=== PATIENT | female | born 1985 | race Caucasian/White ===

== ENCOUNTER 2025-01-26 21:04 | Outpatient (CLI) | payer OTHER, MEDICAID, SELFPAY ==
[2025-01-26] VITALS (15 sets, daily range): BP systolic 118–133; BP diastolic 66–69; PULSE 27–99; O2SAT 79–100
--- NOTE | 2025-01-26 21:04 | PC.NURSE ---
Pt arrives to unit from home with blurred vision and a headache.
--- NOTE | 2025-01-26 21:40 | PC.NURSE ---
heart tones doppled with ultrasound monitor, 145 bpm.
[2025-01-26 21:57] LABS: Basophils Percent Auto 0.3 % (0.2-1.2); Eosinophils Absolute Auto 0.2 K/mm3 (0-0.3); Eosinophils Percent Auto 1.5 % (0-4.4); Hematocrit 35.2 % (37.0-47.0); Hemoglobin 11.6 g/dL (12.0-15.0); Immature Granulocyte Percent A 1.3 % (0-0.5); Lymphocytes Absolute Auto 2.62 K/mm3 (0.9-3.2); Lymphocytes Percent Auto 17.6 % (18.3-44.2); Mean Corpuscular Hemoglobin 29.7 pg (26-34); Mean Platelet Volume 9.5 fl (7.4-10.4); Monocytes Absolute Auto 0.7 K/mm3 (0.1-0.6); Monocytes Percent Auto 4.4 % (2.6-8.5); Neutrophils Absolute Auto 11.2 K/mm3 (1.3-6.7); Neutrophils Percent Auto 74.9 % (45.5-73.1); Platelet Count Result 253 k/mm3 (150-375); Red Blood Count 3.91 M/mm3 (4.2-5.4); Red Cell Distribution Width 14.1 % (11.5-14.5); White Blood Count 14.9 K/mm3 (4.5-10.0)
--- NOTE | 2025-01-26 22:03 | PC.NURSE ---
Addendum entered by Lynne Casas RN 01/27/25 01:27: Orders received for Tylenol 1000 mg for headache, reglan 25 mg and benadryl 10 mg if headache does not resolve with Tylenol. Original Note: Called Onofre Alba CNM, update on pt, blurred vision, headache, blood pressures, heart tones doppled, no uterine activity, and pending labs. Onofre Alba to review labs in the morning. Orders received to discharge pt with instructions to keep next scheduled appointment and when to return to the unit.
[2025-01-26 22:07] LABS: Alanine Aminotransferase 19 U/L (6-35); Albumin Level 3.3 g/dL (3.5-5.1); Alkaline Phosphatase 69 U/L (38-126); Anion Gap 10 mmol/L (4-12); Aspartate Amino Transferase 17 U/L (14-36); Bilirubin,Total 0.2 mg/dL (0.2-1.3); Blood Urea Nitrogen 8 mg/dL (7-17); Calcium 8.5 mg/dL (8.4-10.2); Carbon Dioxide 19 mmol/L (22-30); Chloride 106 mmol/L (98-107); Estimated Glomerular Filt Rate > 60; Glucose 145 mg/dL (65-110); Potassium 3.6 mmol/L (3.4-5.0); Sodium 135 mmol/L (137-145); Uric Acid 3.6 mg/dL (2.5-7.5)
[2025-01-26 22:08] LABS: Creatinine Urine 83.2 mg/dL
--- NOTE | 2025-01-26 22:20 | PC.NURSE ---
Pt refuses Tylenol at this time, wants to take Tylenol at home.
--- NOTE | 2025-01-26 22:48 | PC.NURSE ---
Pt discharged with instructions to take Tylenol 1000 mg as needed for headache, keep next scheduled appointment, and when to return to the unit, pt verbalizes understanding.
[2025-01-27 00:50] LABS: Total Protein Urine Random < 5 mg/dL; Ur Ttl Prot Creatinine Ratio < 0.06 mg/mg (0-0.20)
[2025-01-27 02:19] LABS: Add Urine Microscopic? NO; Appearance Urine Clear (Clear); Bilirubin Urine Negative (Negative); Blood Urine Negative (Negative); Color Urine Yellow (Yellow); Glucose Urine UA Negative (Negative); Ketones Urine Negative (Negative); Leukocyte Esterase Ur Negative LEU/UL (Negative); Nitrate Urine Negative (Negative); Protein Urine Negative (Negative); Specific Grav Ur 1.018 (1.001-1.035); Urobilinogen Urine 0.2 mg/dL (<2.0); pH Urine 6.5 (5.0-9.0)
== END 2025-01-26 22:48 | disposition home or self-care (01) ==
LOC: ANHOBOP 21:13 → ANHLDR 21:16
PROVIDERS: Advanced Practice Midwife; PCP Obstetrics & Gynecology; Visit Provider Obstetrics & Gynecology
DX: O26.899 Other specified pregnancy related conditions, unspecified trimester (principal); Z3A.00 Weeks of gestation of pregnancy not specified
CPT/HCPCS: 36415; 59025; 80053; 81003; 82570; 84156; 84550; 85025

== ENCOUNTER 2025-02-03 12:17 | Outpatient (CLI) | payer OTHER, MEDICAID, SELFPAY ==
[2025-02-03 12:58] VITALS: BP 130/84; PULSE 89
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
[2025-02-03 13:09] LABS: Basophils Absolute Auto 0.1 K/mm3 (0.0-0.1); Basophils Percent Auto 0.4 % (0.2-1.2); Eosinophils Absolute Auto 0.2 K/mm3 (0-0.3); Eosinophils Percent Auto 1.1 % (0-4.4); Hematocrit 36.2 % (37.0-47.0); Hemoglobin 11.9 g/dL (12.0-15.0); Immature Granulocyte Absolute 0.19 K/mm3 (0.00-0.031); Immature Granulocyte Percent A 1.4 % (0-0.5); Lymphocytes Absolute Auto 2.27 K/mm3 (0.9-3.2); Lymphocytes Percent Auto 16.1 % (18.3-44.2); Mean Corpuscular HGB Conc 32.9 g/dl (32-36); Mean Corpuscular Hemoglobin 29.7 pg (26-34); Mean Corpuscular Volume 90.3 fl (80-100); Mean Platelet Volume 9.7 fl (7.4-10.4); Monocytes Absolute Auto 0.7 K/mm3 (0.1-0.6); Monocytes Percent Auto 5.2 % (2.6-8.5); Neutrophils Absolute Auto 10.7 K/mm3 (1.3-6.7); Neutrophils Percent Auto 75.8 % (45.5-73.1); Platelet Count Result 233 k/mm3 (150-375); Red Blood Count 4.01 M/mm3 (4.2-5.4); White Blood Count 14.1 K/mm3 (4.5-10.0)
--- OUTSIDE RECORDS SUMMARY | 2025-02-03 13:21 | XMS_ITS | Encounter Summary ---
Author Organization [facility] Address [address] [place] [address] Phone Care Team Providers Care Refrigeration Service Technician Name Role Phone Damaso Bautista MD Unavailable [phone] Roc Mohamud MD Unavailable Rosalina Arcos Primary Care Provider + Miguel Wilkins MD Unavailable [phone] Deonte Mena MD Unavailable Mago Jackson DO Primary Care Provider [phone] Reason for Visit * Reason Comments Medication Refill Encounter Details Date Type Department Care Team (Late st Contact Info) Description 09/21/2020 Refill [facility] - [place] #1 [place] [address] Damaso Bautista MD [address]2 [place] [phone] Medication Refill Social History Tobacco Use Types Packs/Day Years Used Date Smoking Tobacco: Every Day Cigarettes 0.5 13 Smokeless Tobacco: Never Alcohol Use Standard Drinks/Week Comments No 0 (1 standard drink = 0.6 oz pur e alcohol) PHQ-2 Answer Date Recorded PHQ-2 Score 0 06/05/2019 Sexually Active Control Partners Comments Not Currently Comments No Sex and Gender Information Value Date Recorded Sex Assigned at Not on file Legal Sex Female 9:34 PM CDT Gender Identity Not on file Sexual Orientation Not on file documented as of this encounter Plan of Treatment Upcoming Encounters Date Type Department Care Team (Late st Contact Info) Description 03/03/2025 3:00 PM CDT Office Visit [facility] #2 [place] [address] Damaso Bautista MD [address]2 [place] [address] documented as of this encounter Visit Diagnoses Diagnosis Pituitary neoplasm Neoplasm of unspecified nature of endocrine glands and other parts of nervous system documented in this encounter Additional Health Concerns Assessment Noted Time PHQ-9 Depression Total Score: 0 10/27/19 1:00 PM COMPOUNDING TECHNICIAN documented as of this encounter Care Teams Refrigeration Service Technician Relationship Specialty Start Date End Date Rosalina Arcos PAC [address]2 [place] [address] PCP - General Physician Milieu Manager 10/10/18 10/15/24 Mago Jackson DO [address] [address] PCP - General Family Medicine 10/16/24 Damaso Bautista MD [address]2 [place] [address] Consulting Physician Neurology 08/24/15 Roc Mohamud MD #[address] [address] Consulting Physician Internal Medicine 06/22/16 Miguel Wilkins MD [address] [place] [address] Obstetrics & Gynecology 10/27/19 Deonte Mena MD #2 [facility] [place] [address] Consulting Physician Pulmonary Disease 02/13/23 documented as of this encounter
--- OUTSIDE RECORDS SUMMARY | 2025-02-03 13:22 | XMS_ITS | Clinical Summary ---
Author Organization [facility] Address [address] [facility] [place] [address] Phone Care Team Providers Care Maintenance Instructor Name Role Phone Damaso Bautista MD Unavailable [phone] Miguel Wilkins MD Unavailable Deonte Mena MD Unavailable Mago Jackson DO Primary Care Provider [phone] Allergies No known active allergies Medications bromocriptine (PARLODEL) 2.5 MG TabletIndication s:Pituitary neoplasm Take 1 Tablet by mouth 2 times daily. 60 Tablet 4 4 Active Additional Information Patient not taking.Reported on 10/16/2024 Phentermine HCl 37.5 MG Tablet 0 4 Active ketorolac (TORADOL) 10 MG Tablet Take 1 Tablet by mouth every 6 hours as needed for Moderate or more severe pain. 20 Tablet 4 Active Additional Information Patient not taking.Reported on 10/16/2024 methocarbamol (ROBAXIN) 750 MG TabletIndication s:Back pain, unspecified back location, unspecified back pain laterality, unspecified chronicity Take 1 Tablet by mouth 4 times daily as needed (muscle spasm/back pain). 30 Tablet 4 Active Additional Information Patient not taking.Reported on 10/16/2024 Vit-Fe Fumarate-FA ( VITAMIN PO) Take by mouth. Act amy ondansetron (ZOFRAN-ODT) 8 MG TABLET DISPERSIBLE Take 1 Tablet by mouth every 8 hours as needed for Nausea - 1st line. 30 Tablet Active Active Problems Problem Noted Date Diagnosed Date Ureterolithiasis 05/18/2019 Renal stone 05/16/2019 Obesity, morbid, BMI 40.0-49.9 01/28/2018 Numbness and tingling in right hand 06/13/2016 Benign paroxysmal positional vertigo Classic migraine with aura Nystagmus Pituitary neoplasm Prolactinoma macroadenoma Anxiety disorder due to general medical conditio n Depression Brain tumor PCOS (polycystic ovarian syndrome) Resolved Problems Problem Noted Date Diagnosed Date Resolved Date MARY (obstructive sleep apnea) 02/13/2023 11/29/2023 Obesity 02/13/2023 Family History Medical History Relation Name Comments No Known Problems Brother Rheumatoid Arthritis Father Reid Fay Heart Attack Maternal Grandmother Kerry Melo Congestive Heart Failure Mother Nancy Hoffman r Diabetes Mother Nancy Lee Heart Disease Mother Nancy Lee High Cholesterol Mother Nancy Lee Other-comment Mother Nancy Lee Rashes/Skin Problems Mother Nancy Lee Heart Disease Paternal Grandfather Breast Cancer Paternal Grandmother No Known Problems Sister Relation Name Status Comments Brother Alive Father Reid Fay Alive Maternal Grandfather Maternal Grandmother Kerry Melo Mother Nancy Lee Alive Paternal Grandfather Paternal Grandmother Sister Alive Social History Tobacco Use Types Packs/Day Years Used Date Smoking Tobacco: Former Cigarettes 0.5 13 0 10/18/2007 - 10/18/2020 Smokeless Tobacco: Never Tobacco Cessation:Counseling Given: Not Answered Alcohol Use Standard Drinks/Week Comments No 0 (1 standard drink = 0.6 oz pur e alcohol) [facility] Utilities Answer Date Recorded In the past 12 months has [employer], gas, oil, or water company threatened to shut off services in your home? No 11/29/2023 Social Connection and Isolat ion Panel [NHANES] Answer Date Recorded In a typical week, how many times do you talk on the phone with family, friends, or neighbors? More than three times a week 11/29/2023 How often do you get togethe r with friends or relatives? Patient declined 11/29/2023 Attends Faith Services Not on file 11/29 Active Member of Clubs or Organizations Not on f ile 11/29/2023 Attends Club or Organization Meetings Not on daniel e 11/29/2023 Marital Status Not on file 11/29/2023 AUDIT-C Answer Date Recorded Q1: How often do you have a drink containing alc ohol? Monthly or less 11/29/2023 Q2: How many drinks containi ng alcohol do you have on a typical day when you are drinking? Patient declined 11/29/2023 Q3: How often do you have si x or more drinks on one occasion? Patient declined 11/29/2023 Overall Financial Resource Strain (CARDIA) Answe r Date Recorded How hard is it for you to pa y for the very basics like food, housing, medical care, and heating? Very hard 11/29/2023 PHQ-2 Answer Date Recorded Total Score - Questions 1-9 0 01/07 [facility] - Occupational Stress Questionnaire Answer Date Recorded Do you feel stress - tense, restless, nervous, or anxious, or unable to sleep at night because your mind is troubled all the time - these days? To some extent 11/29/2023 Exercise Vital Sign Answer Date Recorde d On average, how many days pe r week do you engage in moderate to strenuous exercise (like a brisk walk)? 2 days Minutes of Exercise per Session Not on file 11/29/2023 Hunger Vital Sign Answer Date Recorded Within the past 12 months, y ou worried that your food would run out before you got the money to buy more. Sometimes true Within the past 12 months, t he food you bought just didn't last and you didn't have money to get more. Sometimes true PRAPARE - Transportation Answer Date Re corded In the past 12 months, has l ack of transportation kept you from medical appointments or from getting medications? No 11/09 In the past 12 months, has l ack of transportation kept you from meetings, work, or from getting things needed for daily living? No 11/29/2023 Housing Stability Vital Sign Answer Amador e Recorded In the last 12 months, was t here a time when you were not able to pay the mortgage or rent on time? No 11/29/2023 In the last 12 months, how many places have you lived? 1 11/29/2023 In the last 12 months, was t here a time when you did not have a steady place to sleep or slept in a skilled nursing (including now)? No 11/29/2023 Sexually Active Control Partners Comments Not Currently Abstinence, Male Condom Comments No Sex and Gender Information Value Date Recorded Sex Assigned at Not on file Legal Sex Female 9:34 PM CDT Gender Identity Not on file Sexual Orientation Not on file Last Filed Vital Signs Vital Sign Reading Time Taken Comments Blood Pressure 106/80 10/03/2024 8:54 AM LINEN ROOM ATTENDANT Pulse 99 10/03/2024 8:54 AM LINEN ROOM ATTENDANT Temperature 36.4 C (97.5 F) 10/03/2024 8:54 AM LINEN ROOM ATTENDANT Respiratory Rate 16 10/03/2024 8:54 AM LINEN ROOM ATTENDANT Oxygen Saturation 94% 10/03/2024 8:54 AM LINEN ROOM ATTENDANT Inhaled Oxygen Concentration - - Weight 134.3 kg (296 lb) 10/03/2024 8:54 AM LINEN ROOM ATTENDANT Height 165.1 cm (5' 5 ) 10/03/2024 8:54 AM LINEN ROOM ATTENDANT Body Mass Index 49.26 10/03/2024 8:54 AM LINEN ROOM ATTENDANT Plan of Treatment Upcoming Encounters Date Type Department Care Team (Late st Contact Info) Description 03/03/2025 3:00 PM CDT Office Visit [facility] #2 [place] [address] Damaso Bautista MD [address]2 [place] [address] Health Maintenance Due Date Last Done Comments Hepatitis C Virus (HCV) Screening 1987 TdaP Immunization 1987 Hepatitis B Immunization (1 of 3 - 19+ 3-dose series) 2006 Pap Smear 05/10/2024 05/10/2021, 06/17/2019 SARS-COV-2 Immunization ( season) 2024 Influenza Immunization (Seas on Ended) 2025 Cervical Cancer Screening (CCS) 05/10/2026 HPV/Cotest 05/10/2026 05/10/2021 Respiratory Syncytial Virus (RSV) Immunization (Adult) (1 - 1-dose 75+ series) 2062 Meningococcal Immunization (ACWY) Aged Out No longer eligible b ased on patient's age to complete this topic Pneumococcal Immunization Combined Aged Out No longer eligible b ased on patient's age to complete this topic Rotavirus Immunization Aged Out No lo nger eligible based on patient's age to complete this topic Medical Devices Implanted Type Area Land Leasing Information Clerk Device Identifier Shelf Expiration Date Model / Serial / Lot Stent Ureteral 6fr 2.1fr 26cm 2 Pigtail Curve 2 Durometer Taper Tip Loprfl Graduated Polaris Ultra - [id number] Implanted:Qty : 1 on 05/18/2019 at [facility] IMPLANT Right: Ureter VDP 02/16/2022 [id number] 0 / [id number] / [id number] Explanted Type Area Land Leasing Information Clerk Device Identifier Shelf Expiration Date Model / Serial / Lot Stent Ureteral 6fr 2.1fr 26cm 2 Pigtail Curve 2 Durometer Taper Tip Loprfl Graduated Polaris Ultra - [id number] Implanted:Qty : 1 on 05/16/2019 by Hua Bethea MD at [facility] Explanted:Qty : 1 on 05/18/2019 at [facility] IMPLANT Right: Ureter Pembe [employer] 02/16/2022 [id number] 0 / [id number] 0 / [id number] Procedures Procedure Name Priority Date/Time Associated Diagnosis Comments HUMAN PAPILLOMA VIRUS (HPV) 05/10/2021 12:00 AM CDT PATHOLOGY CYTOLOGY BUSINESS BANKING SALES ASSISTANT 05/10/2021 12:00 AM CDT from Last 3 Months or Most Recently Relevant to Health Maintenance Results * PATHOLOGY CYTOLOGY BUSINESS BANKING SALES ASSISTANT (05/10/2021 12:00 AM CDT) 05/10/2021 us Miguel Wilkins MD PATHOLOGY/CYTOLOGY ORD ERABLES Final Result SCAN * HUMAN PAPILLOMA VIRUS (HPV) (05/10/2021 12:00 AM CDT) 05/10/2021 Miguel Wilkins MD LAB SEND OUTS Final Result SCAN from Last 3 Months or Most Recently Relevant to Health Maintenance Insurance [facility] Care Teams Maintenance Instructor Relationship Specialty Start Date End Date Mago Jackson DO [address] [address] PCP - General Family Medicine 10/16/24 Damaso Bautista MD #2 [place] [address] Consulting Physician Neurology 08/24/15 Miguel Wilkins MD [address]2 [place] [address] Obstetrics & Gynecology 10/27/19 Deonte Mena MD #2 [place] [address] Consulting Physician Pulmonary Disease 02/13/23
--- OUTSIDE RECORDS SUMMARY | 2025-02-03 13:22 | XMS_ITS | Clinical Summary ---
Author Organization [facility] Address [address] [place] [address] Care Team Providers Care Dust Mop Maker Name Role Phone Unavailable Primary Care Provider Unavailabl e Source Comments [facility],non-owned Affiliates and Associated Physician Practices is amultiple site organization consisting of ambulatory clinics and hospital sitesin [place], [place], [place] and [place]. This disclosure is being madepursuant to the Care Everywhere program and may not contain all information available regarding this patient. Last updated 18.[facility] iversity Social History Tobacco Use Types Packs/Day Years Used Date Smoking Tobacco: Never Assessed Comments Unknown Sex and Gender Information Value Date Recorded Sex Assigned at Not on file Legal Sex Female 2:20 PM CDT Gender Identity Not on file Sexual Orientation Not on file Plan of Treatment Health Maintenance Due Date Last Done Comments HIV SCREENING 2002 HEPATITIS C SCREENING 05/06/2005 DTAP/TDAP/TD VACCINES (1 - Tdap) 2006 HEPATITIS B VACCINE (1 of 3 - 19+ 3-dose series) 2006 COVID-19 VACCINE ( - 2023-2 5 season) 2024 DEPRESSION SCREENING 10/08/2024 INFLUENZA VACCINE (Season Ended) 2025 ZOSTER VACCINE (1 of 2) 2037 HIB VACCINE Aged Out No longer eligi ble based on patient's age to complete this topic HPV VACCINE Aged Out No longer eligi ble based on patient's age to complete this topic MENINGOCOCCAL (Group B) VACC INE SHARED DECISION-MAKING Aged Out No longer eligibl e based on patient's age to complete this topic MENINGOCOCCAL GROUPS A/C/Y/W VACCINE Aged Out No longer eligible b ased on patient's age to complete this topic PNEUMOCOCCAL VACCINE Aged Out No long er eligible based on patient's age to complete this topic Insurance [place] [address] [place] [address]
--- OUTSIDE RECORDS SUMMARY | 2025-02-03 13:22 | XMS_ITS | Clinical Summary ---
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 THEN 1 TABLET DAILY FOR PREVENTION 2 Active ALPRAZolam (XANAX) 0.25 mg tablet Take 0.25 mg by mouth as needed 1 Active bromocriptine (PARLODEL) 2.5 mg tablet Take 1 tablet (2.5 mg total) by mouth 2 (two) times a day 1 Active ergocalciferol (VITAMIN D) 50,000 unit capsule Take 1.25 mg by mouth once a week 2 Active ibuprofen (ADVIL,MOTRIN) 800 mg tablet Take 1 tablet (800 mg total) by mouth every 8 (eight) hours 60 tablet 1 2 Active Additional Information Patient not taking.Reported on 01/12/2023 Active Problems Problem Noted Date Diagnosed Date Subjective vision disturbance, bilateral 022 Assessment & Plan (02/24/2022 3:22 PM CDT): Order Mcclain visual field (HVF) and OCT mac. History of pituitary tumor/ hormone tx for non-malignant tumor. Using blue blocking lenses prn. Recommend prn use of preservative free artificial tears Strabismic amblyopia of left eye 02/24/2022 Assessment & Plan (02/24/2022 3:18 PM CDT): Monitor. Anxiety disorder due to general medical conditio n 02/03/2022 Benign paroxysmal positional vertigo 02/03/2022 Brain tumor 02/03/2022 Depression 02/03/2022 Nystagmus 02/03/2022 Assessment & Plan (02/24/2022 3:14 PM CDT): Monitor. PCOS (polycystic ovarian syndrome) 02/03/2022 Pituitary adenoma 02/03/2022 Assessment & Plan (01/12/2023 3:32 PM CDT): Dagnosed in 2014 mass (2.0 x 2.3 x 1.3 cm) w/ invasion of the right cavernous sinus and abut on the optic chiasm and left optic nerve. Hormonal evaluation of anterior pituitary gland was consistent with hyperprolactinemia (~ 1138 ng/dl on 04/01/14). Has been having follow up MRI - last one on 09/22/22 Seems to be stable without affecting optic nerve. Plan: Continue to follow up with neurology with annual MRI. Prolactinoma 02/03/2022 Assessment & Plan (01/12/2023 3:36 PM CDT): Hormonal evaluation of anterior pituitary gland was consistent with hyperprolactinemia (~ 1138 ng/dl on 04/01/14). Has been on treatment with bromocriptine Prolactin was down to 8 in 2019 No recent Prolactin available Plan: I asked patient to be consistent with medication Check fasting labs Follow up and further recommendation will be decided after we obtain above test results. Ureterolithiasis 05/18/2019 Renal stone 05/16/2019 Obesity, morbid, BMI 40.0-49.9 01/28/2018 Numbness and tingling in right hand 06/13/2016 Family History Medical History Relation Name Comments Macular degeneration Mother Relation Name Status Comments Mother Social History Tobacco Use Types Packs/Day Years Used Date Smoking Tobacco: Former Tobacco Cessation:Counseling Given: Not Answered Personal Safety Answer Date Recorded Have you ever been in or are you currently in a harmful physical or emotional relationship or is someone making you feel afraid or unsafe? 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 Gender Identity Not on file Sexual Orientation Not on file Obstetrics History Last Filed Vital Signs Vital Sign Reading Time Taken Comments Blood Pressure 124/70 06/19/2024 5:41 PM CDT Pulse 81 06/19/2024 5:41 PM CDT Temperature 36.4 C (97.6 F) 06/19/2024 5:41 PM CDT Respiratory Rate 16 06/19/2024 5:41 PM CDT Oxygen Saturation 97% 06/19/2024 5:41 PM CDT Inhaled Oxygen Concentration - - Weight 117.9 kg (260 lb) 06/19/2024 5:41 PM CDT Height 167.6 cm (5' 6 ) 06/19/2024 5:41 PM CDT Body Mass Index 41.97 06/19/2024 5:41 PM CDT Plan of Treatment Health Maintenance Due Date Last Done Comments Cervical Cancer Screening 1987 Depression Screening 1987 Hepatitis C Screening 1987 DTaP/Tdap/Td Vaccine (1 - Tdap) 1998 Varicella Vaccines (1 of 2 - 13+ 2-dose series) 2000 Hepatitis B Screening 2005 Regular Well Visit/Exam 18-64 2005 Influenza Vaccine (#1) 2024 HPV Vaccines Aged Out No longer eligi ble based on patient's age to complete this topic Pneumococcal vaccine <65 Aged Out No longer eligible based on patient's age to complete this topic Insurance [facility] CHOICE [facility]US [facility] Care Teams Manager Statistical Relationship Specialty Start Date End Date Rosalina Arcos PA [address] [address] PCP - General Wool Fleece Sorter 02/16/22
--- OUTSIDE RECORDS SUMMARY | 2025-02-03 13:22 | XMS_ITS | Referral Summary ---
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
--- OUTSIDE RECORDS SUMMARY | 2025-02-03 13:22 | XMS_ITS | Encounter Summary ---
Author Organization [facility] Address [address] [place] [address] Phone Care Team Providers Care Microbiology Director Name Role Phone Damaso Bautista MD Unavailable [phone] Roc Mohamud MD Unavailable Rosalina Arcos Primary Care Provider + Miguel Wilkins MD Unavailable [phone] Deonte Mena MD Unavailable Mago Jackson DO Primary Care Provider [phone] Reason for Visit * Reason Comments Medication Refill Encounter Details Date Type Department Care Team (Late st Contact Info) Description 03/29/2020 [facility]ill [facility] #1 [place] [address] Damaso Bautista MD [address] [place] [phone] Medication Refill Social History Tobacco Use Types [...] Description 03/03/2025 3:00 PM CDT Office Visit [facility] #2 [place] [address] Damaso Bautista MD [address] [place] [address] documented as of this encounter Visit Diagnoses Not on filedocumented in this encounter Additional Health Concerns Assessment Noted Time PHQ-9 Depression Total Score: 0 10/27/19 20 1:00 PM RENTAL BOATS CARETAKER documented as of this encounter Care Teams Microbiology Director Relationship Specialty Start Date End Date Rosalina Arcos PAC [address]2 [place] [address] PCP - General Physician Cafeteria Associate 10/10/18 10/15/24 Mago Jackson DO [address] [address] PCP - General Family Medicine 10/16/24 Damaso Bautista MD #2 [place] [address] Consulting Physician Neurology 08/24/15 Roc Mohamud MD #[address] [phone] Consulting Physician Internal Medicine 06/22/16 Miguel Wilkins MD #2 [place] [address] Obstetrics & Gynecology 10/27/19 Deonte Mena MD #2 [place] [address] Consulting Physician Pulmonary Disease 02/13/23 documented as of this encounter
--- OUTSIDE RECORDS SUMMARY | 2025-02-03 13:22 | XMS_ITS | Encounter Summary ---
Author Organization [facility] Address [address] [place] [address] Phone Care Team Providers Care Electrician Chief Name Role Phone Damaso Bautista MD Unavailable [phone] Roc Mohamud MD Unavailable Rosalina Arcos Primary Care Provider + Miguel Wilkins MD Unavailable Deonte Mena MD Unavailable Mago Jackson DO Primary Care Provider [phone] Reason for Visit * Reason Comments Medication Refill Encounter Details Date Type Department Care Team (Late st Contact Info) Description 07/31/2023 Refill [facility] - Family Medicine [facility] [address] [place] [id number] Rosalina Arcos, PAC [address] [place] [address] Medication Refill Social History Tobacco Use Types Packs/Day Years Used Date Smoking Tobacco: Former Cigarettes 0.5 13 0 10/18/2007 - 10/18/2020 Smokeless Tobacco: Never Alcohol Use Standard Drinks/Week Comments No 0 (1 standard drink = 0.6 oz pur e alcohol) PHQ-2 Answer Date Recorded Total Score - Questions 1-9 0 01/07 Sexually Active Control Partners Comments Not Currently Comments No Sex and Gender Information Value Date Recorded Sex Assigned at Not on file Legal Sex Female 9:34 PM CDT Gender Identity Not on file Sexual Orientation Not on file documented as of this encounter Miscellaneous Notes * Telephone Encounter - Angy Jett RMA - 07/31/2023 11:08 AM CDT Mailed letter * Telephone Encounter - Rosalina Arcos PAC - 07/31/2023 10:50 AM CDT Refuse needs office visit * Telephone Encounter - Cynthia Mack RN - 07/31/2023 10:18 AM CDT PDMP 04/06/23 Phentermine Medication failed the protocol, provider to review and approve the medication order if appropriate. Requested Prescriptions Pending Prescriptions Disp Refills Phentermine HCl 37.5 MG Tablet [Pharmacy Med Name: PHENTERMINE 37.5MG TABLETS] 30 Tablet 0 Sig: TAKE 1 TABLET BY MOUTH EVERY MORNING BEFORE BREAKFAST Not Delegated - Anorexiants Non-amphetamine Protocol Failed - 07/31/2023 8:28 AM Failed - This refill cannot be delegated Passed - Visit with relevant provider in past 12 months or upcoming 90 days Recent Visits Date Type Provider Dept 01/25/23 Office Visit Rosalina Arcos PAC [facility] 11/02/22 Office Visit Rosalina Arcos PAC [facility] Showing recent visits within past 365 days and meeting all other requirements Future Appointments No visits were found meeting these conditions. Showing future appointments within next 90 days and meeting all other requirements ibuprofen (MOTRIN) 800 MG Tablet [Pharmacy Med Name: IBUPROFEN 800MG TABLETS] 270 Tablet 0 Sig: TAKE 1 TABLET BY MOUTH EVERY 8 HOURS NSAIDs Protocol Failed - 07/31/2023 8:28 AM Failed - AST less than 55 or ALT less than 90 in past 12 months SGOT (AST) Date Value Ref Range Status 01/13/2022 16 <=32 U/L Final SGPT (ALT) Date Value Ref Range Status 01/13/2022 18 <=41 U/L Final Failed - HGB greater than 10 or HCT greater than 30 in past 12 months HEMOGLOBIN (HGB) Date Value Ref Range Status 01/13/2022 13.8 12.0 - 15.8 g/dL Final HEMATOCRIT (HCT) Date Value Ref Range Status 01/13/2022 41.6 36.0 - 47.0 % Final Passed - Normal serum creatinine in past 12 months CREATININE, BLOOD Date Value Ref Range Status 02/13/2023 0.82 0.60 - 1.10 mg/dL Final Passed - No positive test in the past 12 months or most recent test was negative Passed - Visit with relevant provider in past 12 months or upcoming 90 days Recent Visits Date Type Provider Dept 01/25/23 Office Visit Rosalina Arcos PAC [facility] [place] 11/02/22 Office Visit Rosalina Arcos, [facility] Showing recent visits within past 365 days and meeting all other requirements Future Appointments No visits were found meeting these conditions. Showing future appointments within next 90 days and meeting all other requirements Passed - No active on record Passed - No matching NSAID med order in past 45 days No matching medication orders between 06/16/2023 10:18 AM and 07/31/2023 10:18 AM documented in this encounter Plan of Treatment Upcoming Encounters Date Type Department Care Team (Late st Contact Info) Description 03/03/2025 3:00 PM CDT Office Visit [facility] - Neurology - [place] [address] [place] [id number] Damaso Bautista MD [address] [place] [address] documented as of this encounter Visit Diagnoses Diagnosis Obesity, morbid, BMI 40.0-49.9 (HCC) documented in this encounter Additional Health Concerns Assessment Noted Time PHQ-9 Depression Total Score: 0 01/26/20 2:00 PM CDT documented as of this encounter Care Teams Electrician Chief Relationship Specialty Start Date End Date Rosalina Arcos PAC [address] [place] [address] PCP - General Physician [employer] 10/10/18 10/15/24 Mago Jackson DO [address] [address] PCP - General Family Medicine 10/16/24 Damaso Bautista MD [address] [place] [address] Consulting Physician Neurology 08/24/15 Roc Mohamud MD [address] [address] Consulting Physician Internal Medicine 06/22/16 Miguel Wilkins MD [address] [place] [address] Obstetrics & Gynecology 10/27/19 Deonte Mena MD [address] [place] [address] Consulting Physician Pulmonary Disease 02/13/23 documented as of this encounter
[2025-02-03 13:28] LABS: Creatinine Urine 148.9 mg/dL
[2025-02-03 13:32] LABS: Alanine Aminotransferase 17 U/L (6-35); Albumin Level 3.4 g/dL (3.5-5.1); Alkaline Phosphatase 72 U/L (38-126); Anion Gap 9 mmol/L (4-12); Aspartate Amino Transferase 18 U/L (14-36); Bilirubin,Total 0.1 mg/dL (0.2-1.3); Blood Urea Nitrogen 7 mg/dL (7-17); Calcium 8.7 mg/dL (8.4-10.2); Carbon Dioxide 19 mmol/L (22-30); Chloride 107 mmol/L (98-107); Estimated Glomerular Filt Rate > 60; Glucose 94 mg/dL (65-110); Sodium 135 mmol/L (137-145); Uric Acid 3.6 mg/dL (2.5-7.5)
[2025-02-03 13:37] LABS: Total Protein Urine Random < 5 mg/dL; Ur Ttl Prot Creatinine Ratio < 0.03 mg/mg (0-0.20)
[2025-02-03 14:06] LABS: Bilirubin Urine Negative (Negative); Blood Urine Negative (Negative); Color Urine Yellow (Yellow); Glucose Urine UA Negative (Negative); Ketones Urine Negative (Negative); Leukocyte Esterase Ur Negative LEU/UL (Negative); Nitrate Urine Negative (Negative); Protein Urine Negative (Negative); Specific Grav Ur 1.025 (1.001-1.035); Urobilinogen Urine 0.2 mg/dL (<2.0)
[2025-02-03 14:09] LABS: Add Urine Microscopic? NO; Appearance Urine Clear (Clear)
--- NOTE | 2025-02-03 14:12 | PC.NURSE ---
Radha Alba notified that patient was not able to stay and refused monitoring, informed of lab results.
== END 2025-02-03 13:00 | disposition home or self-care (01) ==
LOC: ANHOBOP 12:23 → ANHOBPP 12:24
PROVIDERS: PCP Obstetrics & Gynecology; Visit Provider Advanced Practice Midwife
DX: O13.9 Gestational [pregnancy-induced] hypertension without significant proteinuria, unspecified trimester (principal); Z3A.00 Weeks of gestation of pregnancy not specified
CPT/HCPCS: 36415; 80053; 81003; 82570; 84156; 84550; 85025; 99199